=== PATIENT | female | born 1975 | race Caucasian/White ===

== ENCOUNTER 2020-01-17 07:20 | Outpatient (CLI) | payer BC, SELFPAY ==
--- NOTE | 2020-01-17 | ECHO_ITS ---
Patient Info Name: Shasta Shaffer Age: 44 years : 1975 Gender: Female Ht: 63 in Wt: 108 lbs BSA: 1.47 m2 HR: 63 bpm BP: 115 / 71 mmHg Heart Rhythm: Sinus Rhythm Technical Quality: Good Exam Date: 01/17/2020 8:03 AM Exam Location: [facility] Patient Status: Outpatient Admit Date: 01/17/2020 Staff Ordering Physician: RafaelCatalina PA-C Tableau Lead: Tabitha Ovalles RDCS Attending Provider: MeshaCatalina PA-C Exam Type: CA echo doppler color flow Study Info Indications - BLACKING OUT Complete two-dimensional, color flow and Doppler transthoracic echocardiogram is performed. Summary 1. Left ventricular chamber dimension is normal. 2. Left ventricular systolic function is normal, estimated at 60-65%. 3. There is mildly increased left ventricular wall thickness. 4. The left ventricular diastolic function is normal. 5. The basal inferior wall is hypokinetic. 6. All other vieira appear normal. 7. There is mild aortic valve sclerosis. 8. There is mild aortic valve regurgitation. 9. There is mild mitral valve regurgitation. 10. There is mild tricuspid valve regurgitation. 11. Mild pulmonary hypertension, estimated pulmonary arterial systolic pressure is 37 mmHg. 12. There is mild pulmonic regurgitation. Left Ventricle Left ventricular chamber dimension is normal. Left ventricular systolic function is normal, estimated at 60-65%. There is mildly increased left ventricular wall thickness. The left ventricular diastolic function is normal. The basal inferior wall is hypokinetic. All other vieira appear normal. Right Ventricle Right ventricular chamber dimension is normal. Right ventricular systolic function is normal. Left Atria Left atrial chamber dimension is normal. Right Atria Right atrial chamber dimension is normal. Atrial Septum Intact interatrial septum visualized by color flow imaging. Aortic Valve The aortic valve is trileaflet. There is mild aortic valve sclerosis. There is no aortic valve stenosis. There is mild aortic valve regurgitation. Pulmonic Valve The pulmonic valve is normal. There is no pulmonic valve stenosis. There is mild pulmonic regurgitation. Mitral Valve The mitral valve has normal leaflets. There is no mitral valve stenosis. There is mild mitral valve regurgitation. Tricuspid Valve The tricuspid valve leaflets are normal. There is no significant tricuspid valve stenosis. There is mild tricuspid valve regurgitation. Mild pulmonary hypertension, estimated pulmonary arterial systolic pressure is 37 mmHg. Pericardium/Pleural The pericardium appears normal. There is no pericardial effusion. Inferior Vena Cava Normal inferior vena cava with >50% collapse upon inspiration consistent with elevated right atrial pressure, 10 mmHg. Aorta The aortic root size at the sinus of Valsalva is normal. The prox ascending aorta size is normal. Left Ventricular Outflow Tract Name Value Normal LVOT 2D LVOT Diameter 2.1 cm LVOT Doppler LVOT Peak Velocity 111 cm/s LVOT Peak Gradient
== END 2020-01-17 07:21 | disposition home or self-care (01) ==
PROVIDERS: PCP Physician Assistant; Visit Provider Physician Assistant
DX: R55 Syncope and collapse (principal); I08.3 Combined rheumatic disorders of mitral, aortic and tricuspid valves
CPT/HCPCS: 93306

== ENCOUNTER 2020-03-16 09:41 | Emergency (ER) | payer BC, SELFPAY ==
[2020-03-16 09:57] VITALS: BP 143/80; PULSE 81; RESP 16; TEMP 37.2; O2SAT 100
--- NOTE | 2020-03-16 10:08 | ED.FEMALEGU ---
HPI - Female Genitourinary General Chief complaint: Urogenital-Female Stated complaint: possible ear infection Time Seen by Provider: 03/16/20 10:08 Source: patient and RN notes reviewed Mode of arrival: ambulatory Limitations: no limitations History of Present Illness HPI Narrative: 44-year-old female presents with concern for possible urinary tract infection. Reports 3-day history of frequency, dysuria. Reports voiding in small amounts. Reports spotting yesterday, however her menstrual. Ended approximately 3 days ago. She denies any abnormal vaginal discharge. She reports suprapubic pressure. She denies malaise, body aches, reports low-grade fever of 99. Reports she took Azo 3 hours ago MD elicited complaint: UTI Related Data Home Medications Medication Instructions Recorded Confirmed Adult Probiotic 03/16/20 Allergies Allergy/AdvReac Type Severity Reaction Status Date / Time ciprofloxacin Allergy Unknown Unknown Verified 03/16/20 09:58 Penicillins Allergy Unknown Verified 03/16/20 09:58 Review of Systems Review of Systems: Narrative: CONSTITUTIONAL: Denies malaise, chills, sweats, or fever. CARDIOVASCULAR: Denies chest pain, palpitations RESPIRATORY: Denies cough or dyspnea. GASTROINTESTINAL: Denies abdominal pain, nausea, vomiting, diarrhea GENITOURINARY: Reports dysuria, frequency, small amount of urine. Denies urgency or hematuria. Reports spotting SKIN: Denies rash or itching. MUSCULOSKELETAL: Reports left lower back ache NEUROLOGIC: Denies numbness, weakness, or headache. All systems reviewed & are unremarkable except as noted in HPI and below PMFSH Family History Family History (Updated 05/29/16 @ 23:21 by DOCTOR UNKNOWN) Mother Depression, Onset Age: 55 Patient's mother is in good health Family history of malignant neoplasm of cervix, Onset Age: 26 Patient's mother is Father Patient's father is in good health Family history of diabetes mellitus in first degree relative Grandparent Family history of malignant neoplasm of male breast Social History Social History Smoking status: Former smoker Smoking end date: 11/01/96 Alcohol intake: never Comments At time of signature, agree with nursing past medical, surgical, social and family history. There is no relevant family history pertinent to the presenting complaint Exam Narrative: Exam Narrative: GENERAL: Well-appearing, well-nourished, and in no acute distress. HEAD: Normocephalic. EYES: PERRLA, conjunctivae clear. NECK: Supple. No lymphadenopathy CHEST: Clear to auscultation. No respiratory distress. HEART: Regular rate and rhythm. No murmur heard. Normal peripheral pulses. ABDOMEN: Soft, nontender upon palpation, nondistended, normal active bowel sounds, no palpable or pulsatile masses, no guarding. Left CVA tenderness SKIN: Warm, dry, no rash. NEURO: Alert and oriented x3. PSYCH: Normal mood and affect Course Course Emergency Course: Patient is aware of diagnosis, understands and agrees to treatment plan. Anticipatory guidance given. Patient agrees to follow-up as directed and is aware of reasons to seek care at the emergency department. Portions of this record may have been created with voice recognition software Vital Signs Vital signs: Vital Signs Temperature 98.9 F 03/16/20 09:57 Pulse Rate 81 03/16/20 09:57 Respiratory Rate 16 03/16/20 09:57 Blood Pressure 143/80 H 03/16/20 09:57 Pulse Oximetry 100 03/16/20 09:57 Temperature 98.9 F 03/16/20 09:57 Pulse Rate 81 03/16/20 09:57 Respiratory Rate 16 03/16/20 09:57 Blood Pressure 143/80 H 03/16/20 09:57 Pulse Oximetry 100 03/16/20 09:57 Reviewed. Patient has been instructed to follow up with her primary care provider within the next week regarding her elevated blood pressure today. MDM - Female Genitourinary MDM Narrative Medical decision making narrative: Exam findings and UA show no acute concer
== END 2020-03-16 10:19 | disposition home or self-care (01) ==
PROVIDERS: Emergency Provider Nurse Practitioner; PCP Physician Assistant
DX: R30.0 Dysuria (principal)
CPT/HCPCS: 81003; 87086; 99213; G0463